=== PATIENT | female | born 1950 | race Asian ===

== ENCOUNTER 2017-04-19 22:01 | Emergency (ER) | payer SELFPAY | END 2017-04-19 22:06 | disposition left against medical advice (07) | LOC: ED 22:01 | DX: Z53.21 Procedure and treatment not carried out due to patient leaving prior to being seen by health care provider (principal) | CPT/HCPCS: A4570; J2001 ==

== ENCOUNTER 2017-04-19 22:19 | Emergency (ER) | payer OTHER ==
[~2017-04-19] VITALS: Ht 167.6 cm; Wt 67.1 kg
[2017-04-19 22:32] VITALS: BP 148/74
== END 2017-04-20 02:30 | disposition home or self-care (01) ==
LOC: ED 22:19
DX: S61.216A Laceration without foreign body of right little finger without damage to nail, initial encounter (principal); X58.XXXA Exposure to other specified factors, initial encounter; Y93.89 Activity, other specified; Y92.89 Other specified places as the place of occurrence of the external cause; Y99.8 Other external cause status
CPT/HCPCS: 90714; J0690